=== PATIENT | female | born 1950 | race African-American/Black ===

== ENCOUNTER 2020-07-25 10:39 | Day surgery (SDC) | payer OTHER ==
[2020-07-21 11:19] VITALS: BMI 26.9
[2020-07-25 11:53] VITALS: TEMP 98.2
[2020-07-25 12:53] VITALS: BP 110/60; PULSE 68
== END 2020-07-25 12:55 | disposition home or self-care (01) ==
LOC: FASU-ENDO 10:39
PROVIDERS: ATTEND Internal Medicine Gastroenterology
PROC: 0DB98ZX Excision of Duodenum, Via Natural or Artificial Opening Endoscopic, Diagnostic (ICD-10-PCS; 2020-07-25)
PROC: 0DB78ZX Excision of Stomach, Pylorus, Via Natural or Artificial Opening Endoscopic, Diagnostic (ICD-10-PCS; 2020-07-25)
PROC: 0DBE8ZX Excision of Large Intestine, Via Natural or Artificial Opening Endoscopic, Diagnostic (ICD-10-PCS; principal; 2020-07-25 11:14)
DX: K29.50 Unspecified chronic gastritis without bleeding (principal); K52.89 Other specified noninfective gastroenteritis and colitis; K63.89 Other specified diseases of intestine; K57.30 Diverticulosis of large intestine without perforation or abscess without bleeding; D50.9 Iron deficiency anemia, unspecified; R19.7 Diarrhea, unspecified; R10.9 Unspecified abdominal pain
CPT/HCPCS: 88305-TC; 88342-TC

== ENCOUNTER 2021-05-12 04:17 | Day surgery (SDC) | payer OTHER ==
[2021-05-05 13:55] VITALS: BMI 30.1
[2021-05-12] MEDS ORDERED: BUPIVACAINE HCL/PF 0.5% (5MG/ML) 10 ML VIAL ONE (13:36)
[2021-05-12] MEDS ORDERED: LIDOCAINE HCL 1%, 10 MG/ML (20ML VIAL) ONE (13:36)
[2021-05-12] MEDS ORDERED: BUPIVACAINE HCL/PF 0.25% (2.5MG/ML) 10 ML VIAL ONE (13:42)
[2021-05-12] MEDS ORDERED: MIDAZOLAM HCL 2 MG/2 ML SINGLE DOSE VIAL ONE (13:53)
[2021-05-12] MEDS ORDERED: KETAMINE HCL 200 MG/20 ML VIAL ONE (13:53)
[2021-05-12] MEDS ORDERED: PROPOFOL 20 ML ONE ×2 (13:53→14:25)
[2021-05-12] MEDS ORDERED: ceFAZolin 2 GRAM PREMIX BAG IVPB ONE (13:57)
[2021-05-12] MEDS ORDERED: BUPIVACAINE HCL/PF 0.25% (2.5MG/ML) 10 ML VIAL IJ ONE (14:01)
[2021-05-12] MEDS ORDERED: oxyCODONE HCL 5 MG TABLET PO PRN (15:27)
[2021-05-12] MEDS ORDERED: ONDANSETRON 4 MG/2 ML VIAL IVPUSH PRN (15:27)
[2021-05-12] MEDS ORDERED: LACTATED RINGERS SOLUTION 1,000 ML IV SCH (15:30)
[2021-05-12] MEDS ORDERED: oxyCODONE HCL 5 MG TABLET ONE (16:39)
[2021-05-12 18:10] VITALS: BP 107/58; PULSE 60; TEMP 97.3
== END 2021-05-12 18:00 | disposition home or self-care (01) ==
LOC: JASU-SURG 04:17
PROVIDERS: ATTEND Podiatrist Foot Surgery
PROC: 0SRQ0JZ Replacement of Left Toe Phalangeal Joint with Synthetic Substitute, Open Approach (ICD-10-PCS; principal; 2021-05-12 14:00)
DX: M20.42 Other hammer toe(s) (acquired), left foot (principal)
CPT/HCPCS: 76000-TC-FY; 88304-TC; 88311-TC; 94760

== ENCOUNTER 2021-07-14 05:38 | Day surgery (SDC) | payer OTHER ==
[2021-07-11 18:00] VITALS: BMI 30.1
[2021-07-14] MEDS ORDERED: PROPOFOL 20 ML ONE ×2 (12:45)
[2021-07-14] MEDS ORDERED: LIDOCAINE HCL 1%, 10 MG/ML (20ML VIAL) ONE (13:05)
[2021-07-14] MEDS ORDERED: BUPIVACAINE HCL/PF 0.5% (5MG/ML) 10 ML VIAL ONE (13:05)
[2021-07-14] MEDS ORDERED: MIDAZOLAM HCL 2 MG/2 ML SINGLE DOSE VIAL ONE (13:13)
[2021-07-14] MEDS ORDERED: ceFAZolin SODIUM 1 GM VIAL ONE (13:20)
[2021-07-14] MEDS ORDERED: LIDOCAINE 1% P/F 10 MG/ML VIAL INF ONE (13:20)
[2021-07-14] MEDS ORDERED: ceFAZolin SODIUM 1 GM VIAL IVPB ONE (13:21)
[2021-07-14] MEDS ORDERED: ACETAMINOPHEN 1000 MG/100 ML BAG IVPB ONE (13:46)
[2021-07-14] MEDS ORDERED: oxyCODONE HCL 5 MG TABLET PO PRN (13:46)
[2021-07-14] MEDS ORDERED: ONDANSETRON 4 MG/2 ML VIAL IVPUSH PRN (13:46)
[2021-07-14] MEDS ORDERED: LACTATED RINGERS SOLUTION 1,000 ML IV SCH (14:00)
[2021-07-14] MEDS ORDERED: BUPIVACAINE HCL/PF 0.5% (5 MG/ML) 30 ML VIAL IJ ONE (14:00)
[2021-07-14 15:54] VITALS: BP 123/62; PULSE 62; TEMP 97.1
== END 2021-07-14 16:42 | disposition home or self-care (01) ==
LOC: JASU-SURG 05:38
PROVIDERS: ATTEND Podiatrist Foot Surgery
PROC: 0QPP04Z Removal of Internal Fixation Device from Left Metatarsal, Open Approach (ICD-10-PCS; 2021-07-14)
PROC: 0SRP0JZ Replacement of Right Toe Phalangeal Joint with Synthetic Substitute, Open Approach (ICD-10-PCS; principal; 2021-07-14 13:00)
DX: M20.41 Other hammer toe(s) (acquired), right foot (principal); T84.84XA Pain due to internal orthopedic prosthetic devices, implants and grafts, initial encounter; Y79.1 Therapeutic (nonsurgical) and rehabilitative orthopedic devices associated with adverse incidents; Y92.9 Unspecified place or not applicable
CPT/HCPCS: 88300-TC; 88304-TC; 88311-TC